=== PATIENT | female | born 1975 | race Caucasian/White ===

== ENCOUNTER 2016-07-24 12:39 | Emergency (ER) | payer MEDICAID, OTHER ==
[2016-07-24] MEDS ORDERED: Ondansetron ODT TAB* 4 MG PO ONE (14:40)
[2016-07-24] MEDS ORDERED: NS 0.9% 1000 ML* 1,000 ML IV ONE (14:41)
--- NOTE | 2016-07-24 15:25 | UC ---
Abdominal Pain Female HPI - HPI Summary HPI Summary: Pt presents with c/o sudden onset of mausea, vomiting and diarrhea this morning at 3 am. Pt reports that she feels nauseous and dizzy, is unable to keep " anything down" and has had 3 episodes of loose stools since 3 am this morning. - History of Current Complaint Chief Complaint: UCGI Stated Complaint: VOMITING,DIARRHEA Time Seen by Provider: 07/24/16 14:52 Hx Obtained From: Patient Hx Last Menstrual Period: 07/10/16 ?: No Onset/Duration: Sudden Onset, Lasting Hours Timing: Constant Severity Initially: Mild Severity Currently: Mild Radiates: No Alleviating Factor(s): Vomiting Associated Signs and Symptoms: Positive: Nausea, Vomiting, Diarrhea Allergies/Adverse Reactions: Allergies Allergy/AdvReac Type Severity Reaction Status Date / Time Aspirin Allergy See Comment Verified 07/24/16 14:12 Penicillins [PCN] Allergy Unknown Verified 07/24/16 14:12 Reaction Details PMH/Surg Hx/FS Hx/Imm Hx Previously Healthy: Yes - Surgical History Surgical History: Yes Surgery Procedure, Year, and Place: left upper arm Rods and Pins s/p fracture. x3 c section. Appy - Family History Known Family History: Positive: Other - positive FM for nausea - Social History Alcohol Use: Occasionally Substance Use Type: None Smoking Status (MU): Heavy Every Day Tobacco Smoker Length of Time of Smoking/Using Tobacco: 1/2 - 1ppd Review of Systems Constitutional: Chills, Other - malaise Skin: Negative Eyes: Negative ENT: Negative Respiratory: Negative Cardiovascular: Negative Gastrointestinal: Vomiting, Diarrhea Genitourinary: Negative Motor: Negative Neurovascular: Negative Musculoskeletal: Negative Neurological: Headache Psychological: Negative All Other Systems Reviewed And Are Negative: Yes Physical Exam Triage Information Reviewed: Yes Vital Signs: Initial Vital Signs Temp 97.7 F 07/24/16 14:02 Pulse 60 07/24/16 14:02 Resp 14 07/24/16 14:02 Pulse Ox 99 07/24/16 14:02 Vital Signs Reviewed: Yes ENT Exam: Normal Respiratory Exam: Normal Cardiovascular Exam: Normal Musculoskeletal Exam: Normal Neurological Exam: Normal Psychological Exam: Normal Skin Exam: Normal Abd Pain Female Course/Dx - Differential Dx/Diagnosis Differential Diagnosis: Other - food poisoning gastroenteritis Provider Diagnoses: gastroenteritis. food poisoning-? Discharge - Discharge Plan Condition: Stable Disposition: HOME Prescriptions: Ondansetron HCl [Zofran 8 MG TAB] 8 mg PO Q8H PRN #15 tab PRN Reason: Nausea Referrals: Ya Coles MD [Primary Care Provider] - Additional Instructions: Please follow up with your PCP or return to clinic as needed.
[2016-07-24 15:31] VITALS: BP 178/92
== END 2016-07-24 15:40 | disposition home or self-care (01) ==
LOC: UCCORT 12:39
DX: K52.9 Noninfective gastroenteritis and colitis, unspecified (principal); Z88.6 Allergy status to analgesic agent; Z88.0 Allergy status to penicillin; F17.210 Nicotine dependence, cigarettes, uncomplicated
CPT/HCPCS: 81003; 99212; A9270-GY; G0463

== ENCOUNTER 2017-08-14 13:46 | Emergency (ER) | payer OTHER ==
[2017-08-14] MEDS ORDERED: NS 0.9% 1000 ML* 1,000 ML IV ONE (13:52)
--- NOTE | 2017-08-14 14:05 | RAD ---
HISTORY: Neurological changes, code lange, left-sided weakness COMPARISONS: None TECHNIQUE: Multiple contiguous axial CT scans were obtained of the head without intravenous contrast. FINDINGS: HEMORRHAGE/INFARCT: There is no hemorrhage or acute infarct. MASSES/SHIFT: There is no mass or shift. EXTRA-AXIAL SPACES: There are no extra-axial fluid collections. 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 CEREBRUM: There are no focal parenchymal abnormalities. BRAINSTEM: There are no focal parenchymal abnormalities. CEREBELLUM: There are no focal parenchymal abnormalities. VESSELS: The vessels are grossly normal. PARANASAL SINUSES: The paranasal sinuses are clear. ORBITS: The orbits are unremarkable. BONES AND SOFT TISSUE: No bone or soft tissue abnormalities are noted. OTHER: None IMPRESSION: NO ACUTE INTRACRANIAL PATHOLOGY. PORENCEPHALIC CYST OF THE LEFT LATERAL VENTRICLE SUGGESTIVE OF INJURY. PRELIMINARY FINDINGS WERE DISCUSSED WITH DR. GORDON IN THE EMERGENCY DEPARTMENT AT APPROXIMATELY 2:02 PM ON AUGUST 14, 2017.
[2017-08-14 14:29] LABS: ABS Basophils 0.1 10^3/ul (0-0.2); ABS Eosinophils 0.2 10^3/ul (0-0.6); ABS Lymphocytes 2.6 10^3/ul (1.0-4.8); ABS Monocytes 0.4 10^3/ul (0-0.8); ABS Neutrophils 4.4 10^3/ul (1.5-7.7); ABS Nucleated RBC 0 10^3/ul; Hematocrit 34 % (35-47); INR 0.9 (0.77-1.02); Mean Corpuscular HGB Conc 32 g/dl (31-36); Mean Corpuscular Hemoglobin 25 pg (27-31); Mean Corpuscular Volume 78 fL (80-97); Nucleated Red Blood Cells % 0; Platelet Count 352 10^3/ul (150-450); Red Blood Count 4.37 10^6/ul (4.0-5.4); Red Cell Distribution Width 19 % (10.5-15); White Blood Count 7.8 10^3/ul (3.5-10.8)
[2017-08-14 14:44] LABS: EGFR Non-African American 85.3 (>60)
[2017-08-14 14:56] LABS: Urine Color Amber
[2017-08-14 14:59] LABS: Urine Appearance Cloudy; Urine Blood 3+ (Negative); Urine Ketones Negative (Negative); Urine Protein 2+(100 mg/dL) (Negative); Urine Specific Gravity 1.005 (1.010-1.030); Urine Urobilinogen Negative (Negative)
--- NOTE | 2017-08-14 15:01 | RAD ---
HISTORY: Stroke like symptoms COMPARISONS: None VIEWS: 1: frontal portable view of the chest at 2:34 PM FINDINGS: LINES AND TUBES: None. CARDIOMEDIASTINAL SILHOUETTE: The cardiomediastinal silhouette is normal for portable technique. PLEURA: The costophrenic angles are sharp. No pleural abnormalities are noted. LUNG PARENCHYMA: The lungs are clear. ABDOMEN: The upper abdomen is clear. There is no subphrenic gas. BONES AND SOFT TISSUES: There is postsurgical change to the left humerus. IMPRESSION: NO ACTIVE CARDIOPULMONARY DISEASE.
[2017-08-14] MEDS ORDERED: Iohexol 350* (CONTRAST) 500 ML MDV IV ONE (15:57)
--- NOTE | 2017-08-14 17:10 | RAD ---
HISTORY: Stroke like symptoms, facial droop COMPARISONS: Head CT dated August 14, 2017 TECHNIQUE: Multiple contiguous axial CT scans were obtained of the head and neck after the administration of nonionic intravenous contrast timed to the systemic arterial phase of contrast enhancement. Coronal and sagittal multiplanar reformations are submitted for review. Multiple 3-D maximum intensity projection reconstructions are also submitted for review. FINDINGS: CTA NECK: AORTIC ARCH: There is a normal three-vessel branching pattern of the aortic arch. There is a filling defect consistent with a nonocclusive thrombus within the brachiocephalic trunk measuring approximately 0.5 cm transversely and 1.3 cm in length. Elsewhere, there is no ostial or proximal stenosis of the cephalic great vessels. RIGHT VERTEBRAL ARTERY: The right vertebral artery is patent along its course, without stenosis. LEFT VERTEBRAL ARTERY: The left vertebral artery is patent along its course, without stenosis. DOMINANCE: The vertebral arteries are codominant. RIGHT COMMON CAROTID ARTERY: The right common carotid artery is patent. The right carotid bifurcation occurs at C3-C4 RIGHT INTERNAL CAROTID ARTERY: There is no right internal carotid artery stenosis by NASCET criteria. RIGHT EXTERNAL CAROTID ARTERY: The right external carotid artery is unremarkable. LEFT COMMON CAROTID ARTERY: The left common carotid artery is patent. The left carotid bifurcation occurs at C3-C4 LEFT INTERNAL CAROTID ARTERY: There is mild atheromatous disease of the left carotid bifurcation, without left internal carotid artery stenosis by NASCET criteria. LEFT EXTERNAL CAROTID ARTERY: The left external carotid artery is unremarkable. VENOUS CIRCULATION: The venous system is unremarkable. SALIVARY GLANDS: The parotid glands, submandibular glands, sublingual glands are normal. NASAL CAVITY/NASOPHARYNX: The nasal cavity and nasopharynx are normal. ORAL CAVITY/OROPHARYNX: The oral cavity and oropharynx are unremarkable. LARYNGEAL APPARATUS/HYPOPHARYNX: The laryngeal apparatus and hypopharynx are normal. UPPER AIRWAY/UPPER ESOPHAGUS: The visualized upper airway and esophagus are normal. LUNG APICES: The lung apices are clear. THYROID GLAND: The thyroid gland is normal. LYMPH NODES: There is no lymphadenopathy by size criteria. BONES AND SOFT TISSUES: No bone or soft tissue abnormalities are noted. CTA HEAD: INTRACRANIAL CIRCULATION: There is mild attenuation of the M4 branches of the anterior frontal territory of the right middle cerebral artery. Elsewhere, there is no aneurysm, vascular malformation, occlusion, or stenosis of the visualized cranial circulation. The anterior communicating artery complex is clear. Bilateral posterior communicating arteries are identified. VENOUS CIRCULATION: The venous system is unremarkable. PERFUSION: There is a perfusion defect of the right posterior frontal lobe HEMORRHAGE/INFARCT: There is mild loss of magdaleno-white differentiation within the posterior right frontal lobe consistent with subacute nonhemorrhagic infarct. MASSES/SHIFT: There is no mass or shift. EXTRA-AXIAL SPACES: There are no extra-axial fluid collections. 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 CEREBRUM: There are no focal parenchymal abnormalities. BRAINSTEM: There are no focal parenchymal abnormalities. CEREBELLUM: There are no focal parenchymal abnormalities. PARANASAL SINUSES: The paranasal sinuses are clear. ORBITS: The orbits are unremarkable. BONES AND SOFT TISSUE: No bone or soft tissue abnormalities are noted. OTHER: There is no abnormal enhancement. IMPRESSION: 1. THERE IS LOSS OF MAGDALENO-WHITE DIFFERENTIATION WITH HYPOPERFUSION OF THE RIGHT POSTERIOR FRONTAL LOBE CONSISTENT WITH SUBACUTE, NONHEMORRHAGIC INFARCT. 2. THERE IS A NONOCCLUSIVE THROMBUS NOTED WITHIN THE BRACHIOCEPHALIC TRUNK, PRESUMABLY A SOURCE OF EMBOLI. THIS IS OF UNCLEAR ETIOLOGY, BUT MAY REPRESENT PROPAGATION OF CARDIAC THROMBUS. 3. THERE IS MINIMAL ATHEROMATOUS DISEASE. 4. THERE IS NO INTERNAL CAROTID ARTERY STENOSIS BY NASCET CRITERIA. PRELIMINARY FINDINGS WERE DISCUSSED WITH DR. GORDON IN THE EMERGENCY DEPARTMENT AT APPROXIMATELY 5:05 PM ON AUGUST 14, 2017. CPT II Codes: 3100F
[2017-08-14] MEDS ORDERED: Mouth Piece, Nicotine* 1 EACH CARTRIDGE INH PRN (18:14)
[2017-08-14] MEDS ORDERED: Nicotine Inhaler* 10 MG AMP INH PRN (18:14)
[2017-08-14] MEDS ORDERED: Heparin DRIP 25,000 UNITS(*) 25,000 UNITS/500 ML BAG IV SCH (18:30)
[2017-08-14] MEDS ORDERED: Mouth Piece, Nicotine* 1 EACH CARTRIDGE ONE (18:35)
[2017-08-14] MEDS ORDERED: Nicotine Inhaler* 10 MG AMP ONE (18:35)
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
[2017-08-14 20:01] VITALS: BP 0/0
== END 2017-08-14 19:40 | disposition short-term general hospital (02) ==
LOC: ED 13:46
DX: I63.9 Cerebral infarction, unspecified (principal); R47.1 Dysarthria and anarthria; R29.810 Facial weakness; R27.8 Other lack of coordination
CPT/HCPCS: 36415; 70450; 70496; 70498; 71045; 80053; 80061; 81003; 81015; 83605; 84484; 85025; 85610; 85730; 86850; 86900; 86901; 87086; 93005; 96360; 96374; 96375; 99285; A9270-GY; Q9967